=== PATIENT | male | born 1970 | race Two or more races ===

== ENCOUNTER 2022-01-08 07:02 | Inpatient (IN) | payer MEDICAID, OTHER ==
[~2022-01-08] VITALS: Ht 190.5 cm; Wt 122.2 kg
[~2022-01-08 07:02] MED LIST: ACET-2708 PO; APIX5TAB MT; ASPI-1406 MT; ATOR-2 MT; CARV6.2548 PO; EZET10TA13 PO; FURO40TA5 MT; ISOS30TA12 MT; NITR0.4T49 SL
[2022-01-08] MEDS ORDERED: PROPOFOL 10MG/ML 100ML 100 ML IV ONE (07:45)
[2022-01-08] MEDS ORDERED: ETOMIDATE 2MG/ML 10ML VIAL IV ONE (07:45)
[2022-01-08] MEDS ORDERED: FENTANYL 2500MCG/250ML PMX 250 ML IV PRN (07:45)
[2022-01-08] MEDS ORDERED: NALOXONE HCL 1 MG/ML 2ML VIAL IV ONE ×2 (07:45)
[2022-01-08 08:28] LABS: CHLORIDE 107 mEq/L (98-107)
[2022-01-08 08:31] LABS: BASOPHILS % 0.7 % (0.0-2.0); EOSINOPHILS % 1.5 % (0.0-5.0); HEMATOCRIT. 48.8 % (42.0-52.0); HEMOGLOBIN. 16.2 g/dL (14.0-18.0); LYMPHOCYTES % 8.2 % (20.0-50.0); MEAN CORPUSCULAR HEMOGLOBIN 30.5 pg (28.0-32.0); MEAN CORPUSCULAR VOLUME 91.8 fL (80.0-94.0); MEAN PLATELET VOLUME 8.4 fl (7.4-10.4); MONOCYTES % 7.7 % (2.0-8.0); NEUTROPHILS % 81.9 % (40.0-76.0); PLATELET 172 x1000/uL (130-400); RED BLOOD CELL COUNT 5.31 mill/uL (4.7-6.1); RED CELL DISTRIBUTION WIDTH 14.7 % (11.6-14.6)
[2022-01-08 08:40] LABS: CLARITY URINE CLEAR (CLEAR); COLOR URINE YELLOW (YELLOW); KETONES URINE NEGATIVE (NEGATIVE); LEUKOCYTE ESTERASE URINE NEGATIVE (NEGATIVE); NITRITE URINE NEGATIVE (NEGATIVE); OCCULT BLOOD URINE 3+ (NEGATIVE); PROTEIN URINE NEGATIVE (NEGATIVE); UROBILINOGEN URINE 0.2 E.U./dL (0.2-1.0)
[2022-01-08] MEDS ORDERED: ASPIRIN 325MG EC TABLET PO SCH (09:15)
[2022-01-08] MEDS ORDERED: MORPHINE SULFATE 4 MG/ML CPJ (NOT FOR IM USE) IV SCH (09:15)
[2022-01-08] MEDS ORDERED: CLONIDINE 0.1MG TABLET PO PRN (19:00)
[2022-01-08] MEDS ORDERED: HYDROCODONE/ACETAMINOPHEN 5/325MG TABLET PO PRN (19:00)
[2022-01-08] MEDS ORDERED: ACETAMINOPHEN 325MG TABLET PO PRN (19:00)
[2022-01-08] MEDS ORDERED: ONDANSETRON HCL 4MG/2ML INJ IV PRN (19:00)
[2022-01-08] MEDS ORDERED: DOCUSATE SODIUM 100MG CAPSULE PO PRN (19:00)
[2022-01-08] MEDS ORDERED: MAGNESIUM/ALUMINUM HYDROXIDE/SIMETHICONE 30ML UDC PO PRN (19:00)
[2022-01-08] MEDS ORDERED: ISOS30TA91 PO (19:11)
[2022-01-08] MEDS ORDERED: DEXTROSE 50% WATER 50ML SYRINGE IV PRN ×2 (19:15)
[2022-01-08] MEDS: INSULIN LISPRO 100 UNITS/ML SUBCUT SCH (20:38)
[2022-01-08] MEDS: BLOOD SUGAR DIAGNOSTIC STRIP TEST SCH (20:38)
[2022-01-08 23:40] VITALS: BP 139/79
[2022-01-09 04:00] VITALS: BP 128/74
[2022-01-09] MEDS: BLOOD SUGAR DIAGNOSTIC STRIP TEST SCH ×4 (06:02→17:20)
[2022-01-09 06:17] LABS: BASOPHILS % 0.4 % (0.0-2.0); EOSINOPHILS % 1.9 % (0.0-5.0); HEMATOCRIT. 46.4 % (42.0-52.0); HEMOGLOBIN. 15.9 g/dL (14.0-18.0); LYMPHOCYTES % 14.5 % (20.0-50.0); MEAN CORPUSCULAR HEMOGLOBIN 31.2 pg (28.0-32.0); MEAN CORPUSCULAR VOLUME 91.3 fL (80.0-94.0); MEAN PLATELET VOLUME 8.8 fl (7.4-10.4); MONOCYTES % 11.2 % (2.0-8.0); PLATELET 160 x1000/uL (130-400); RED BLOOD CELL COUNT 5.08 mill/uL (4.7-6.1); RED CELL DISTRIBUTION WIDTH 14.8 % (11.6-14.6)
[2022-01-09 06:47] LABS: PHOSPHORUS 3.3 mg/dL (2.5-4.9); T4 FREE 0.72 ng/dL (0.76-1.46)
[2022-01-09 07:14] LABS: *AMPHETAMINES SCREEN URINE NEGATIVE (NEGATIVE); *BARBITURATES SCREEN URINE NEGATIVE (NEGATIVE); *BENZODIAZEPINES SCREEN URINE NEGATIVE (NEGATIVE); *COCAINE SCREEN URINE NEGATIVE (NEGATIVE); CANNABINOID URINE SCREEN NEGATIVE (NEGATIVE); METHADONE URINE SCREEN NEGATIVE (NEGATIVE); OPIATES URINE SCREEN PRESUMTIVE POSITIVE (NEGATIVE); PHENCYCLIDINE URINE SCREEN NEGATIVE (NEGATIVE)
[2022-01-09 08:00] VITALS: BP 110/74
[2022-01-09] MEDS ORDERED: ISOSORBIDE DINITRATE 30MG TABLET PO SCH (09:00)
[2022-01-09] MEDS: INSULIN LISPRO 100 UNITS/ML SUBCUT SCH ×3 (09:49→17:50)
[2022-01-09] MEDS: APIXABAN 5 MG TABLET PO SCH ×2 (09:49→18:41)
[2022-01-09] MEDS: ASPIRIN 81MG EC TABLET PO SCH (09:50)
[2022-01-09] MEDS: OMEPRAZOLE 20MG CAPSULE EXTENDED RELEASE PO SCH (09:50)
[2022-01-09] MEDS: EZETIMIBE 10MG TABLET PO SCH (09:50)
[2022-01-09] MEDS: FUROSEMIDE 40MG TABLET PO SCH (09:50)
[2022-01-09] MEDS: ISOSORBIDE MONONITRATE 30MG TABLET SR 24HR PO SCH (09:51)
[2022-01-09] MEDS: CARVEDILOL 6.25 MG TABLET PO SCH (09:56)
[2022-01-09 12:00] VITALS: BP 115/72
[2022-01-09 16:00] VITALS: BP 118/74
[2022-01-09 20:00] VITALS: BP 106/74
[2022-01-09] MEDS ORDERED: NALOXONE HCL 0.4MG/ML VIAL IV PRN (20:00)
[2022-01-10] VITALS: BP 107/71
[2022-01-10 04:00] VITALS: BP 107/79
[2022-01-10 06:50] LABS: BASOPHILS % 0.7 % (0.0-2.0); EOSINOPHILS % 2.7 % (0.0-5.0); HEMATOCRIT. 48.1 % (42.0-52.0); HEMOGLOBIN. 16.7 g/dL (14.0-18.0); MEAN CORPUSCULAR HEMOGLOBIN 31.5 pg (28.0-32.0); MEAN CORPUSCULAR VOLUME 90.7 fL (80.0-94.0); MEAN PLATELET VOLUME 8.4 fl (7.4-10.4); MONOCYTES % 9.4 % (2.0-8.0); NEUTROPHILS % 69.2 % (40.0-76.0); PLATELET 171 x1000/uL (130-400); RED CELL DISTRIBUTION WIDTH 14.5 % (11.6-14.6)
[2022-01-10] MEDS: BLOOD SUGAR DIAGNOSTIC STRIP TEST SCH ×2 (07:20→12:20)
[2022-01-10] MEDS: INSULIN LISPRO 100 UNITS/ML SUBCUT SCH ×3 (07:50→12:35)
[2022-01-10 08:00] VITALS: BP 116/78
[2022-01-10] MEDS: OMEPRAZOLE 20MG CAPSULE EXTENDED RELEASE PO SCH (08:39)
[2022-01-10] MEDS: ISOSORBIDE MONONITRATE 30MG TABLET SR 24HR PO SCH (10:03)
[2022-01-10] MEDS: FUROSEMIDE 40MG TABLET PO SCH (10:04)
[2022-01-10] MEDS: CARVEDILOL 6.25 MG TABLET PO SCH (10:04)
[2022-01-10] MEDS: APIXABAN 5 MG TABLET PO SCH (10:04)
[2022-01-10] MEDS: ASPIRIN 81MG EC TABLET PO SCH (10:04)
[2022-01-10] MEDS: EZETIMIBE 10MG TABLET PO SCH (10:08)
[2022-01-10 12:00] VITALS: BP 109/74
[2022-01-10] MEDS ORDERED: HYDR-4001 PO (13:49)
[2022-01-10 16:00] VITALS: BP 113/74
[2022-01-10 16:48] VITALS: BP 113/74
[2022-01-11] MEDS ORDERED: FAMOTIDINE 20MG TABLET PO SCH (07:20)
== END 2022-01-10 17:20 | disposition home or self-care (01) | DRG 194 ==
LOC: ER 07:02 → 6WST 11:40 → ENRESERV 21:19
PROVIDERS: ADMIT Internal Medicine; ATTEND Internal Medicine
DX: I13.0 Hypertensive heart and chronic kidney disease with heart failure and stage 1 through stage 4 chronic kidney disease, or unspecified chronic kidney disease (principal); N17.9 Acute kidney failure, unspecified; I82.412 Acute embolism and thrombosis of left femoral vein; E11.22 Type 2 diabetes mellitus with diabetic chronic kidney disease; Z79.01 Long term (current) use of anticoagulants; E11.65 Type 2 diabetes mellitus with hyperglycemia; D72.829 Elevated white blood cell count, unspecified; E66.9 Obesity, unspecified; M94.0 Chondrocostal junction syndrome [Tietze]; I50.43 Acute on chronic combined systolic (congestive) and diastolic (congestive) heart failure; N13.9 Obstructive and reflux uropathy, unspecified; N20.2 Calculus of kidney with calculus of ureter; Z20.822 Contact with and (suspected) exposure to COVID-19; I82.432 Acute embolism and thrombosis of left popliteal vein; I25.10 Atherosclerotic heart disease of native coronary artery without angina pectoris; I44.7 Left bundle-branch block, unspecified; N18.9 Chronic kidney disease, unspecified; E78.5 Hyperlipidemia, unspecified; Z79.82 Long term (current) use of aspirin; Z79.899 Other long term (current) drug therapy; Z71.3 Dietary counseling and surveillance
CPT/HCPCS: 36415; 71045; 74176; 76770; 80048; 80053; 80061; 80076; 80305; 81003; 82962; 83735; 84100; 84439; 84443; 84484; 85025; 87426; 93005; 93306; 93970; 99285; J1815; J2270

== ENCOUNTER 2022-04-29 00:58 | Emergency (ER) | payer MEDICAID, OTHER ==
[~2022-04-29] VITALS: Ht 180.3 cm; Wt 110.0 kg
[~2022-04-29 00:58] MED LIST changes: +HYDR-4001 PO; -ISOS30TA12 MT; +ISOS30TA91 PO
[2022-04-29 01:21] VITALS: BP 147/87
== END 2022-04-29 05:24 | disposition left against medical advice (07) ==
LOC: ER 00:58
DX: Z53.21 Procedure and treatment not carried out due to patient leaving prior to being seen by health care provider (principal); I11.0 Hypertensive heart disease with heart failure; I50.9 Heart failure, unspecified; E78.00 Pure hypercholesterolemia, unspecified; R73.03 Prediabetes

== ENCOUNTER 2022-07-06 14:28 | Emergency (ER) | payer OTHER ==
[~2022-07-06] VITALS: Ht 182.9 cm; Wt 120.0 kg
[2022-07-06 17:30] VITALS: BP 162/102
== END 2022-07-06 19:27 | disposition left against medical advice (07) ==
LOC: ER 14:28
DX: Z53.21 Procedure and treatment not carried out due to patient leaving prior to being seen by health care provider (principal); I11.0 Hypertensive heart disease with heart failure; I50.9 Heart failure, unspecified; E78.00 Pure hypercholesterolemia, unspecified
CPT/HCPCS: 93005

== ENCOUNTER 2022-08-25 04:38 | Emergency (ER) | payer MEDICAID, OTHER ==
[~2022-08-25] VITALS: Ht 182.9 cm; Wt 123.0 kg
[2022-08-25 04:45] VITALS: BP 165/105
[2022-08-25 06:26] LABS: BASOPHILS % 1.1 % (0.0-2.0); EOSINOPHILS % 2.6 % (0.0-5.0); HEMATOCRIT. 50.2 % (42.0-52.0); HEMOGLOBIN. 18.1 g/dL (14.0-18.0); LYMPHOCYTES % 27.2 % (20.0-50.0); MEAN CORPUSCULAR HEMOGLOBIN 32.7 pg (28.0-32.0); MEAN CORPUSCULAR VOLUME 90.7 fL (80.0-94.0); MEAN PLATELET VOLUME 8.5 fl (7.4-10.4); MONOCYTES % 6.9 % (2.0-8.0); NEUTROPHILS % 62.2 % (40.0-76.0); PLATELET 179 x1000/uL (130-400); RED BLOOD CELL COUNT 5.53 mill/uL (4.7-6.1); RED CELL DISTRIBUTION WIDTH 14.6 % (11.6-14.6)
[2022-08-25 06:35] LABS: CLARITY URINE CLEAR (CLEAR); COLOR URINE YELLOW (YELLOW); KETONES URINE TRACE (NEGATIVE); LEUKOCYTE ESTERASE URINE NEGATIVE (NEGATIVE); NITRITE URINE NEGATIVE (NEGATIVE); OCCULT BLOOD URINE NEGATIVE (NEGATIVE); PROTEIN URINE TRACE (NEGATIVE); SPECIFIC GRAVITY URINE 1.033 (1.005-1.030)
[2022-08-25 06:36] LABS: CHLORIDE 103 mEq/L (98-107)
[2022-08-25 07:28] LABS: ETHANOL BLOOD < 10 mg/dL
[2022-08-25 08:13] LABS: *AMPHETAMINES SCREEN URINE NEGATIVE (NEGATIVE); *BARBITURATES SCREEN URINE NEGATIVE (NEGATIVE); *BENZODIAZEPINES SCREEN URINE NEGATIVE (NEGATIVE); *COCAINE SCREEN URINE NEGATIVE (NEGATIVE); CANNABINOID URINE SCREEN NEGATIVE (NEGATIVE); METHADONE URINE SCREEN NEGATIVE (NEGATIVE); OPIATES URINE SCREEN NEGATIVE (NEGATIVE); PHENCYCLIDINE URINE SCREEN NEGATIVE (NEGATIVE)
[2022-08-25] MEDS ORDERED: VISCOUS LIDOCAINE 2% 15 ML UDC PO STA (08:23)
[2022-08-25] MEDS ORDERED: MAGNESIUM/ALUMINUM HYDROXIDE/SIMETHICONE 30ML UDC PO STA (08:23)
[2022-08-25] MEDS ORDERED: METH-773 MT (08:30)
[2022-08-25] MEDS ORDERED: OMEP20CA14 MT (08:30)
== END 2022-08-25 08:59 | disposition home or self-care (01) ==
LOC: ER 04:38
DX: R10.13 Epigastric pain (principal); I11.0 Hypertensive heart disease with heart failure; I50.9 Heart failure, unspecified; E78.00 Pure hypercholesterolemia, unspecified; M54.12 Radiculopathy, cervical region; E11.9 Type 2 diabetes mellitus without complications; Z79.899 Other long term (current) drug therapy; Z98.890 Other specified postprocedural states
CPT/HCPCS: 36415; 72040; 76705; 80053; 80305; 80320; 81003; 85025; 93005; 99285; G0480